=== PATIENT | female | born 1985 | race Caucasian/White ===

== ENCOUNTER 2017-02-06 18:15 | Emergency (ER) | payer BC ==
--- NOTE | 2017-02-06 18:59 | EDM.PDOC ---
ED HPI GENERAL MEDICAL PROBLEM - General Chief Complaint: General Stated Complaint: ALLERGIC REACTION?? Time Seen by Provider: 02/06/17 18:35 Source of Information: Reports: Patient History Limitations: Reports: No Limitations - History of Present Illness INITIAL COMMENTS - FREE TEXT/NARRATIVE: PT STATES SHE WAS SEEN IN CLINIC TODAY BU DR GARCIA AND GIVEN 2 NEW PRESCRIPTIONS, BUSPIRONE AND DULOXETINE FOR ANXIETY SYMPTOMS. PT TOOK BOTH MEDICATIONS AT SAME TIME AND SHORTLY AFTER DEVELOPED DIZZINESS AND WEAKNESS WHILE AT WORK. DECIDED TO PRESENT TO ER. DENIES CP, SOB, FEVER, LEROY, OR N/V. Quality: Reports: Other (DIZZY) Improves with: Reports: None Worsens with: Reports: None Associated Symptoms: Reports: Weakness - Related Data Allergies Allergy/AdvReac Type Severity Reaction Status Date / Time ciprofloxacin [From Cipro] Allergy Rash Verified 02/06/17 18:31 ciprofloxacin HCl Allergy Rash Verified 02/06/17 18:31 [From Cipro] hydromorphone HCl Allergy Hives Verified 02/06/17 18:31 [From Dilaudid] morphine Allergy Hives Verified 02/06/17 18:31 sulfamethoxazole Allergy Hives Verified 02/06/17 18:31 [From Bactrim] terbutaline sulfate Allergy Hives Verified 02/06/17 18:31 [From Brethine] trimethoprim [From Bactrim] Allergy Hives Verified 02/06/17 18:31 Home Meds: Home Meds Hydrocodone/Acetaminophen [Hydrocodon-Acetaminophen 5-325] 1 tab PO Q4HR PRN [History] Past Medical History Other Endocrine/Metabolic History: nodules on thyroid Social & Family History - Tobacco Use Smoking Status *Q: Current Every Day Smoker Years of Tobacco use: 15 Used Tobacco, but Quit: No Second Hand Smoke Exposure: No - Alcohol Use Days Per Week of Alcohol Use: 0 - Recreational Drug Use Recreational Drug Use: No - Living Situation & Occupation Living situation: Reports: , with Family Occupation: Employed ED ROS GENERAL - Review of Systems Review Of Systems: ROS reveals no pertinent complaints other than HPI. Constitutional: Reports: Weakness HEENT: Reports: No Symptoms Respiratory: Reports: No Symptoms Cardiovascular: Reports: No Symptoms Endocrine: Reports: No Symptoms GI/Abdominal: Reports: No Symptoms : Reports: No Symptoms Musculoskeletal: Reports: No Symptoms Skin: Reports: No Symptoms Neurological: Reports: Dizziness. Denies: Headache Psychiatric: Reports: No Symptoms Hematologic/Lymphatic: Reports: No Symptoms Immunologic: Reports: No Symptoms ED EXAM, GENERAL - Physical Exam Exam: See Below Exam Limited By: No Limitations General Appearance: Alert, WD/WN, No Apparent Distress Eye Exam: Bilateral Eye: Normal Inspection Ears: Normal External Exam, Normal Canal, Hearing Grossly Normal, Normal TMs Nose: Normal Inspection, Normal Mucosa, No Blood Throat/Mouth: Normal Inspection, Normal Oropharynx, No Airway Compromise Head: Atraumatic, Normocephalic Neck: Normal Inspection, Supple, Non-Tender Respiratory/Chest: No Respiratory Distress, Lungs Clear, Normal Breath Sounds, No Accessory Muscle Use, Chest Non-Tender Cardiovascular: Regular Rate, Rhythm, No Murmur, No Rub GI/Abdominal: Normal Bowel Sounds, Soft, Non-Tender Back Exam: Normal Inspection. No: CVA Tenderness (L), CVA Tenderness (R) Extremities: Normal Inspection, No Pedal Edema Neurological: Alert, Oriented, CN II-XII Intact, Normal Cognition, No Motor/ Sensory Deficits Psychiatric: Normal Affect, Normal Mood Skin Exam: Warm, Dry, Intact, Normal Color, No Rash Lymphatic: No Adenopathy Course - Re-Assessments/Exams Free Text/Narrative Re-Assessment/Exam: 02/06/17 18:58 PT GIVEN ONE LITER OF IV NS FLUID. CURRENTLY AFEBRILE, NONTOXIC APPEARING, VSS, FEELS BETTER Departure - Departure Time of Disposition: 19:04 Disposition: Home, Self-Care 01 Condition: good Clinical Impression: Medication reaction Qualifiers: Encounter type: initial encounter Qualified Code(s): T88.7XXA - Unspecified adverse effect of drug or medicament, initial encounter - Discharge Information Instructions: Panic Attacks, [id number] Additional Instructions: FOLLOW UP WITH DR GARCIA - Assessment/Plan Assessment:: MEDICATION REACTION Plan: TAKE MEDS DIRECTED AND F/U WITH DR GARCIA
[2017-02-06 19:04] VITALS: BP 137/104
[2017-02-06] MEDS ORDERED: Sodium Chloride 0.9% 1,000 ML IV ONE (19:05)
== END 2017-02-06 19:40 | disposition home or self-care (01) ==
LOC: KA.ED 18:15
DX: R42 Dizziness and giddiness (principal); T43.595A Adverse effect of other antipsychotics and neuroleptics, initial encounter; F17.210 Nicotine dependence, cigarettes, uncomplicated; Z88.1 Allergy status to other antibiotic agents; Z88.5 Allergy status to narcotic agent; Z88.2 Allergy status to sulfonamides
CPT/HCPCS: 96360; 99283; J7030

== ENCOUNTER 2017-03-16 17:41 | Emergency (ER) | payer BC ==
[2017-03-16 17:55] VITALS: BP 145/108
[2017-03-16] MEDS ORDERED: Sodium Chloride 0.9% 5 ML Syringe FLUSH PRN (18:00)
[2017-03-16] MEDS ORDERED: Meperidine PF 25 MG/ML Syringe IVPUSH ONE (18:40)
[2017-03-16] MEDS ORDERED: hydrOXYzine HCl 50 MG/ML SDV IM ONE (18:41)
[2017-03-16 19:02] LABS: CHLORIDE,CL 99 mmol/L (98-115); SODIUM,NA 138 mmol/L (136-145)
[2017-03-16] MEDS ORDERED: Iopamidol 612 MG/ML 75 ML Bottle IVPUSH ONE (20:07)
[2017-03-16] MEDS ORDERED: Sodium Chloride 0.9% 50 ML SDV FLUSH ONE (20:09)
[2017-03-16] MEDS ORDERED: Ketorolac 30 MG/ML SDV IVPUSH ONE (20:10)
[2017-03-16] MEDS ORDERED: Ketorolac 30 MG/ML SDV ONE (20:11)
[2017-03-16] MEDS ORDERED: Ketorolac 10 MG Tab PO ONE (20:55)
[2017-03-16] MEDS ORDERED: Acetaminophen/HYDROcodone 325-5 MG Tab PO ONE (20:55)
[2017-03-16] MEDS ORDERED: Ketorolac 10 MG Tab ONE (20:55)
[2017-03-16] MEDS ORDERED: Acetaminophen/HYDROcodone 325-5 MG Tab ONE (20:55)
--- NOTE | 2017-03-16 21:11 | EDM.PDOC ---
ED HPI GENERAL MEDICAL PROBLEM - General Chief Complaint: Genitourinary Problem Stated Complaint: TROUBLE/PAIN URINATING Time Seen by Provider: 03/16/17 17:50 Source of Information: Reports: Patient History Limitations: Reports: No Limitations - History of Present Illness INITIAL COMMENTS - FREE TEXT/NARRATIVE: 31-year-old female presents with complaints of abdominal pain, cramping, pain with urinating. Patient reports his symptoms have been going on now for several days. They seem to be continuous. She had had a laparotomy for removal of the enlarged left ovary which she reports was adhesive to her large intestine. This was removed on 03/09/17 at [facility] by Dr. Stanley Hill. She's been taking ibuprofen 800 mg and hydrocodone that was provided by her primary care. She was seen in clinic on Sunday by Dr. Mary Lang and had a urinary analysis drawn and was started on Macrobid. She's had little improvement with her pain and symptoms. Maury 1-2 hydrocodone about every 4-6 hours. She's also tried a heating pad without relief. She denies any fever or chills. She has felt nauseous since Sunday. She has had a bowel movement every day. She has had a prior hysterectomy 6 years ago. She rates her pain a 7 or 8 out of possible 10 in severity. Onset: Gradual Onset Date: 03/13/17 Duration: Constant Location: Reports: Pelvis Quality: Reports: Burning, Sharp, Other (cramping) Severity: Moderate Improves with: Reports: None Worsens with: Reports: None Context: Reports: Other (surgery, pelvic laparotomy) Associated Symptoms: Reports: Nausea/Vomiting (denies vomiting). 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, Other (see below) (hydrocodone, Macrobid) Lower Abdominal Pain Score (Numeric/FACES): 8 - Related Data Allergies Allergy/AdvReac Type Severity Reaction Status Date / Time ciprofloxacin [From Cipro] Allergy Rash Verified 03/16/17 17:50 ciprofloxacin HCl Allergy Rash Verified 03/16/17 17:50 [From Cipro] hydromorphone HCl Allergy Hives Verified 03/16/17 17:50 [From Dilaudid] morphine Allergy Hives Verified 03/16/17 17:50 sulfamethoxazole Allergy Hives Verified 03/16/17 17:50 [From Bactrim] terbutaline sulfate Allergy Hives Verified 03/16/17 17:50 [From Brethine] trimethoprim [From Bactrim] Allergy Hives Verified 03/16/17 17:50 Home Meds: Home Meds Hydrocodone/Acetaminophen [Hydrocodon-Acetaminophen 5-325] 1 tab PO Q4HR PRN [History] busPIRone [Buspar] 10 mg PO Q8H PRN 02/06/17 [History] traMADol [Ultram] 50 mg PO Q8H PRN 02/06/17 [History] Escitalopram [Lexapro] 1 tab PO DAILY 03/16/17 [History] Nitrofurantoin Millard/Macrocryst [Macrobid] 1 tab PO BID 03/16/17 [History] Past Medical History Genitourinary History: Reports: None 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: Reports: Fibroids, Psychiatric History: Reports: Depression Endocrine/Metabolic History: Reports: Other (See Below) Other Endocrine/Metabolic History: nodules on thyroid Hematologic History: Reports: Blood Transfusion(s) - Infectious Disease History Infectious Disease History: Reports: Chicken Pox - Past Surgical History Head Surgeries/Procedures: Reports: None Female Surgical History: Reports: Cystoscopy, Hysterectomy, Salpingo- Oophorectomy Endocrine Surgical History: Reports: None Social & Family History - Family History Family Medical History: Noncontributory - Tobacco Use Smoking Status *Q: Current Every Day Smoker Years of Tobacco use: 15 Packs/Tins Daily: 0.5 Used Tobacco, but Quit: No Second Hand Smoke Exposure: No - Caffeine Use Caffeine Use: Reports: None - Alcohol Use Days Per Week of Alcohol Use: 0 - Recreational Drug Use Recreational Drug Use: No - Living Situation & Occupation Living situation: Reports: , with Family Occupation: Employed ED ROS GENERAL - Review of Systems Review Of Systems: Unable To Obtain Constitutional: Denies: Fever, Chills, Diaphoresis HEENT: Reports: No Symptoms Respiratory: Reports: No Symptoms Cardiovascular: Reports: No Symptoms Endocrine: Reports: No Symptoms GI/Abdominal: Reports: Abdominal Pain, Nausea. Denies: Vomiting : Reports: Dysuria, Hematuria, Pain. Denies: Flank Pain, Incontinence Musculoskeletal: Reports: No Symptoms Skin: Reports: Bruising (abdomen near her portal incision sites) Neurological: Reports: No Symptoms Psychiatric: Reports: No Symptoms Hematologic/Lymphatic: Reports: No Symptoms Immunologic: Reports: No Symptoms ED EXAM, RENAL/ - Physical Exam Exam: See Below Exam Limited By: No Limitations General Appearance: Alert, Mild Distress, Thin Throat/Mouth: Normal Voice, No Airway Compromise Head: Atraumatic Neck: Normal Inspection Respiratory/Chest: No Respiratory Distress, Lungs Clear Cardiovascular: Normal Peripheral Pulses, Regular Rate, Rhythm, No Murmur GI/Abdominal: Normal Bowel Sounds, Tender, Other (incisional portal sites are benign appearing there is mild ecchymosis in the lower abdomen.). No: Guarding , Rigid, Rebound Back Exam: Normal Inspection Extremities: Normal Inspection, No Pedal Edema Neurological: Alert, Oriented, Normal Cognition, Normal Gait, No Motor/Sensory Deficits Psychiatric: Normal Affect, Normal Mood Skin Exam: Warm, Dry, Intact, Normal Color, No Rash, Ecchymosis, Wound/Incision (benign) Lymphatic: No Adenopathy Course - Vital Signs Last Recorded V/S: Last Vital Signs Temp 98.1 F 03/16/17 17:52 Pulse 108 H 03/16/17 17:52 Resp 16 03/16/17 17:52 BP 145/108 H 03/16/17 17:52 Pulse Ox 100 03/16/17 17:52 - Orders/Labs/Meds Orders: Active Orders 24 hr Category Date Time Status Abdomen Pelvis w Cont [CT] Stat Exams 03/16/17 18:37 Ordered Sodium Chloride 0.9% [Syrex Flush] Med 03/16/17 18:00 Active 5 ml FLUSH Q8HR PRN Saline Lock Insert [OM.PC] Routine Oth 03/16/17 18:00 Ordered Medication Orders Sodium Chloride (Syrex Flush) 5 ml FLUSH Q8HR PRN PRN Reason: Keep Vein Open Last Admin: 03/16/17 20:17 Dose: 5 ml Labs: Laboratory Tests 03/16/17 03/16/17 03/16/17 Range/Units 18:30 18:30 18:30 WBC 13.5 H (5.0-10.0) 10^3/uL RBC 4.60 (3.80-5.50) 10^6/uL Hgb 14.7 (12.0-16.0) g/dL Hct 41.9 (37.0-47.0) % MCV 91.2 (82.0-92.0) fL MCH 31.9 H (27.0-31.0) pg MCHC 35.0 (32.0-36.0) g/dL RDW 12.3 (11.5-14.5) % Plt Count 364 H (150-300) 10^3/uL MPV 7.2 L (7.4-10.4) fL Neut % (Auto) 74.4 H (50.0-70.0) % Lymph % (Auto) 17.9 L (20.0-40.0) % Millard % (Auto) 5.5 (2.0-8.0) % Eos % (Auto) 1.3 (1.0-3.0) % Baso % (Auto) 0.9 (0.0-1.0) % Neut # (Auto) 10.1 H (2.5-7.0) 10^3/uL Lymph # (Auto) 2.4 (1.0-4.0) 10^3/uL Millard # (Auto) 0.7 (0.1-0.8) 10^3/uL Eos # (Auto) 0.2 (0.1-0.3) 10^3/uL Baso # (Auto) 0.1 (0.0-0.1) 10^3/uL Sodium 138 (136-145) mmol/L Potassium 4.0 (3.3-5.3) mmol/L Chloride 99 (98-115) mmol/L Carbon Dioxide 28.8 (21.0-32.0) mmol/L BUN 10 (6-25) mg/dL Creatinine 0.74 (0.51-1.17) mg/dL Est Cr Clr Drug Dosing 102.01 mL/min Estimated GFR (MDRD) > 60 mL/min Glucose 115 H (70-110) mg/dL Calcium 9.3 (8.7-10.3) mg/dL Specimen Type Urincc Urine Color Yellow (YELLOW) Urine Appearance Clear (CLEAR) Urine pH 6.0 (5.0-9.0) Ur Specific Falcon <= 1.005 (1.005-1.030) Urine Protein Negative (NEGATIVE) mg/dL Urine Glucose (UA) Negative (NEGATIVE) mg/dL Urine Ketones Negative (NEGATIVE) mg/dL Urine Occult Blood Moderate H (NEGATIVE) Urine Nitrite Negative (NEGATIVE) Urine Bilirubin Negative (NEGATIVE) Urine Urobilinogen 0.2 (0.2-1.0) E.U./dL Ur Leukocyte Esterase Negative (NEGATIVE) Urine RBC 20-30 H /HPF Urine WBC 0-5 /HPF Ur Epithelial Cells Moderate H /LPF Urine Bacteria Few (NONE TO FEW) /HPF Meds: Medications Generic Name Dose Route Start Last Admin Trade Name Kisha PRN Reason Stop Dose Admin Sodium Chloride 5 ml 03/16/17 18:00 03/16/17 20:17 Syrex Flush FLUSH 5 ml Q8HR PRN Administration Keep Vein Open Discontinued Medications Generic Name Dose Route Start Last Admin Trade Name Kisha PRN Reason Stop Dose Admin Hydrocodone Bitart/Acetaminophen 2 tab 03/16/17 20:55 03/16/17 21:14 Benld 325-5 Mg PO 03/16/17 20:56 Not Given ONETIME ONE Hydrocodone Bitart/Acetaminophen Confirm 03/16/17 20:55 03/16/17 21:15 Benld 325-5 Mg Administered 03/16/17 20:56 Not Given Dose 2 tab .ROUTE .STK-MED ONE Hydroxyzine HCl 50 mg 03/16/17 18:41 03/16/17 19:03 Vistaril IM 03/16/17 18:42 50 mg ONETIME ONE Administration Iopamidol 75 ml 03/16/17 20:07 03/16/17 20:08 Isovue-300 (61%) IVPUSH 03/16/17 20:08 75 ml ONETIME ONE Administration Ketorolac Tromethamine 30 mg 03/16/17 20:10 03/16/17 20:13 Toradol IVPUSH 03/16/17 20:11 30 mg ONETIME ONE Administration Ketorolac Tromethamine Confirm 03/16/17 20:11 03/16/17 21:15 Toradol Administered 03/16/17 20:12 Not Given Dose 30 mg .ROUTE .STK-MED ONE Ketorolac Tromethamine 10 mg 03/16/17 20:55 03/16/17 21:15 Toradol PO 03/16/17 20:56 Not Given ONETIME ONE Ketorolac Tromethamine Confirm 03/16/17 20:55 03/16/17 21:17 Toradol Administered 03/16/17 20:56 Not Given Dose 10 mg .ROUTE .STK-MED ONE Meperidine HCl 25 mg 03/16/17 18:40 03/16/17 19:05 Demerol IVPUSH 03/16/17 18:41 25 mg ONETIME ONE Administration Sodium Chloride 50 ml 03/16/17 20:09 03/16/17 20:10 Normal Saline FLUSH 03/16/17 20:10 50 ml ONETIME ONE Administration - Radiology Interpretation Free Text/Narrative:: CT abdomen pelvis with IV contrast Findings; postsurgical changes in the abdomen and pelvis from recent left nephrectomy. Some of the fluid pelvis is likely postsurgical. There is slightly more than expected and there is an adjacent portion of sigmoid colon demonstrates wall thickening. This could be secondary to recent surgery, or small amount of inflammation. There is no pneumoperitoneum to suggest perforation Recent surgery explains the air in the anterior abdominal wall. Uterus is also been resected still has the appendix. Solid abdominal viscera is unremarkable. Right ovary remains, demonstrating slight enlargement and numerous small peripherally located follicles. Scattered changes of spondylolysis of the spine no fracture or obvious lesion. Impression Fluid in the abdomen is likely due in part to recent left nephrectomy. Small amount of sigmoid bowel inflammation is also possible as described above. However no evidence of perforation at this time. Otherwise no significant abnormality in the abdomen or pelvis. CT Results Date: 03/16/17 CT Results Time: 20:55 - Re-Assessments/Exams Free Text/Narrative Re-Assessment/Exam: 03/16/17 23:46 Patient was given IV Demerol, IM Vistaril, IV Toradol. She had improvement of her pain and symptoms with the Demerol and Vistaril bringing her pain down to a 6 out of 10. She was given IV Toradol after her CT scan and this dropped her pain down to a 5 out of 10 and she felt that this was manageable Departure - Departure Time of Disposition: 21:15 Disposition: Home, Self-Care 01 Condition: Good Clinical Impression: Postoperative lower abdominal pain - Discharge Information Instructions: Hysterectomy Information, Pujo-[id number], Abdominal Pain, Adult, [id number] Referrals: Mary Huerta MD [Primary Care Provider] - Forms: ED Department Discharge Additional Instructions: 1. Rest 2. Benld 5/325 one to 2 every 6 hours when necessary for pain. 3. Toradol 10 mg 1 every 8 hours when necessary for pain 4. If abdominal pain continues to be not relieved with pain medication and rest encourage follow-up in the emergency room for reevaluation and further studies. 5. 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 6. Continue with oral hydration and bland diet at this time. - My Orders Last 24 Hours: My Active Orders 03/16/17 18:00 Sodium Chloride 0.9% [Syrex Flush] 5 ml FLUSH Q8HR PRN Saline Lock Insert [OM.PC] Routine 03/16/17 18:37 Abdomen Pelvis w Cont [CT] Stat - Assessment/Plan Last 24 Hours: My Active Orders 03/16/17 18:00 Sodium Chloride 0.9% [Syrex Flush] 5 ml FLUSH Q8HR PRN Saline Lock Insert [OM.PC] Routine 03/16/17 18:37 Abdomen Pelvis w Cont [CT] Stat Assessment:: 1. Lower abdominal pelvic pain following laparotomy for removal of the left ovary and adhesions. Plan: 1. Rest 2. Benld 5/325 one to 2 every 6 hours when necessary for pain. 3. Toradol 10 mg 1 every 8 hours when necessary for pain 4. If abdominal pain continues to be not relieved with pain medication and rest encourage follow-up in the emergency room for reevaluation and further studies. 5. 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 6. Continue with oral hydration and bland diet at this time.
== END 2017-03-16 21:15 | disposition home or self-care (01) ==
LOC: KA.ED 17:41
DX: R10.30 Lower abdominal pain, unspecified (principal); G89.18 Other acute postprocedural pain; Z98.890 Other specified postprocedural states; Z79.899 Other long term (current) drug therapy; Z88.1 Allergy status to other antibiotic agents; Z88.6 Allergy status to analgesic agent; Z88.2 Allergy status to sulfonamides; F17.210 Nicotine dependence, cigarettes, uncomplicated
CPT/HCPCS: 74177; 80048; 81001; 85025; 96372; 96374; 96375; 99284; A9270; J1885; J2175; J3410; Q9967

== ENCOUNTER 2020-04-14 20:59 | Emergency (ER) | payer BC, OTHER ==
[2020-04-14 21:15] VITALS: BP 132/92; PULSE 100
--- NOTE | 2020-04-14 22:02 | EDM.PDOC ---
ED HPI GENERAL MEDICAL PROBLEM - General Chief Complaint: General Stated Complaint: headache, dizziness Time Seen by Provider: 04/14/20 21:30 Source of Information: Reports: Patient, Significant Other History Limitations: Reports: No Limitations - History of Present Illness INITIAL COMMENTS - FREE TEXT/NARRATIVE: Patient presents with headache (6/10), slight vision "delay", nausea and pain in the right scientology. 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 She says she didn't have LOC or fall but did have visual "blackout" for 3-4 seconds. She finished the last 7 hours of her 10-hour shift then went home and slept. She slept Sunday 0800 to 1800 and awoke with a bad headache and a delay in her vision, when she moved her eyes, that made things blurry briefly only with eye movement. Today she has also had pain in the right scientology where the wrench hit her. No vomiting or balance problems. Headache Pain Score (Numeric/FACES): 7 Neck Pain Score (Numeric/FACES): 4 - Related Data Allergies Allergy/AdvReac Type Severity Reaction Status Date / Time ciprofloxacin [From Cipro] Allergy Rash Verified 04/14/20 21:01 ciprofloxacin HCl Allergy Rash Verified 04/14/20 21:01 [From Cipro] hydromorphone HCl Allergy Hives Verified 04/14/20 21:01 [From Dilaudid] morphine Allergy Hives Verified 04/14/20 21:01 sulfamethoxazole Allergy Hives Verified 04/14/20 21:01 [From Bactrim] terbutaline sulfate Allergy Hives Verified 04/14/20 21:01 [From Brethine] trimethoprim [From Bactrim] Allergy Hives Verified 04/14/20 21:01 Home Meds: Home Meds Hydrocodone/Acetaminophen [Hydrocodon-Acetaminophen 5-325] 1 tab PO Q4HR PRN 02/06/17 [History] traMADol [Ultram] 50 mg PO Q8H PRN 02/06/17 [History] Prazosin HCl [Prazosin] 2 mg PO BEDTIME 07/09/18 [History] Past Medical History Genitourinary History: Reports: None 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, Musculoskeletal History: Reports: Back Pain, Chronic Psychiatric History: Reports: Depression Endocrine/Metabolic History: Reports: Other (See Below) Other Endocrine/Metabolic History: nodules on thyroid Hematologic History: Reports: Blood Transfusion(s) - Infectious Disease History Infectious Disease History: Reports: Chicken Pox - Past Surgical History Head Surgeries/Procedures: Reports: None Female Surgical History: Reports: Section, Cystoscopy, Hysterectomy, Salpingo-Oophorectomy Endocrine Surgical History: Reports: None Social & Family History - Family History Family Medical History: Noncontributory - Tobacco Use Smoking Status *Q: Current Every Day Smoker Years of Tobacco use: 20 Packs/Tins Daily: 0.5 - Caffeine Use Caffeine Use: Reports: Energy Drinks - Recreational Drug Use Recreational Drug Use: No - Living Situation & Occupation Living situation: Reports: , with Family Occupation: Employed ED ROS GENERAL - Review of Systems Review Of Systems: See Below Constitutional: Denies: Fever, Chills, Malaise, Weakness HEENT: Denies: Ear Pain, Throat Pain Respiratory: Denies: Shortness of Breath, Cough Cardiovascular: Denies: Chest Pain, Syncope GI/Abdominal: Reports: Nausea. Denies: Abdominal Pain, Diarrhea, Vomiting : Denies: Dysuria, Flank Pain Musculoskeletal: Reports: Neck Pain (right posterior muscle). Denies: Shoulder Pain, Arm Pain, Back Pain, Hand Pain Skin: Denies: Cyanosis, Jaundice, Mottled, Pallor, Diaphoresis Neurological: Reports: Headache. Denies: Confusion, Dizziness, Seizure, Syncope, Trouble Speaking, Difficulty Walking Psychiatric: Denies: Agitation, Anxiety, Confusion ED EXAM, GENERAL - Physical Exam Exam: See Below Exam Limited By: No Limitations General Appearance: Alert, WD/WN, No Apparent Distress Eye Exam: Bilateral Eye: EOMI, Normal Inspection (full visual parrish bilat), PERRL Ears: Normal External Exam, Normal Canal, Hearing Grossly Normal, Normal TMs Nose: Normal Inspection, No Blood Throat/Mouth: Normal Inspection, Normal Lips, Normal Teeth, Normal Gums, Normal Oropharynx, Normal Voice, No Airway Compromise Head: Other (Right scientology is quite tender to touch with slight palpable swelling/induration about 5 x 5 cm in size. Skin intact without ecchymosis. No raccoon eyes or maciel sign.). No: Facial Swelling, Facial Tenderness Neck: Normal Inspection, Supple, Full Range of Motion, Tender Lateral (right paraspinal muscle). No: Tender Midline Respiratory/Chest: No Respiratory Distress, Lungs Clear, Normal Breath Sounds, No Accessory Muscle Use Cardiovascular: Regular Rate, Rhythm, No Murmur Peripheral Pulses: 2+: Carotid (L), Carotid (R) GI/Abdominal: Normal Bowel Sounds, Soft, Non-Tender, No Organomegaly, No Distention, No Abnormal Bruit Back Exam: Normal Inspection, Full Range of Motion. No: CVA Tenderness (L), CVA Tenderness (R), Paraspinal Tenderness, Vertebral Tenderness Extremities: Normal Inspection, Normal Range of Motion Neurological: Alert, Oriented, CN II-XII Intact, Normal Cognition, Normal Gait, No Motor/Sensory Deficits Psychiatric: Normal Affect, Normal Mood Skin Exam: Warm, Dry, Intact, Normal Color, No Rash Course - Vital Signs Last Recorded V/S: Last Vital Signs Temp 96.5 F L 04/14/20 21:11 Pulse 100 04/14/20 21:11 Resp 20 04/14/20 21:11 BP 132/92 H 04/14/20 21:11 Pulse Ox 98 04/14/20 21:11 - Orders/Labs/Meds Orders: Active Orders 24 hr Category Date Time Status Head wo Cont [CT] Stat Exams 04/14/20 21:09 Ordered - Re-Assessments/Exams Free Text/Narrative Re-Assessment/Exam: 04/14/20 22:[address] shows no acute pathology. I discussed findings and treatment plan with patient and her . We discussed concussion precautions and recommendations. She talked with Dr. Newman, her PCP, earlier today and was given work excuse for last night and tonight. We discussed that a few more nights off would be helpful, especially with her ongoing headache and other symptoms. She will talk to Dr. Newman about extending the work release and find out if she wants to see her before she goes back to work or not. Patient doesn't want anything for her headache now. She just wanted to make sure nothing serious was going on and now can go home and sleep. Patient discharged to home in stable condition. Departure - Departure Time of Disposition: 22:27 Disposition: Home, Self-Care 01 Condition: Good Clinical Impression: Concussion Qualifiers: Encounter type: initial encounter Loss of consciousness presence/duration: without LOC Qualified Code(s): S06.0X0A - Concussion without loss of consciousness, initial encounter - Discharge Information Instructions: Concussion, Adult, [id number], Head Injury, Adult, [id number] Referrals: Mary Huerta MD [Primary Care Provider] - Additional Instructions: Avoid activities that would be higher risk for re-injury of your head. Avoid stress on the brain from prolonged reading, screen time, studying, etc. Get extra sleep. Follow up with your PCP if headache and eye symptoms persist more than a couple days. Recheck sooner with PCP or ER if worsening. Sepsis Event Note (ED) - Evaluation Sepsis Screening Result: No Definite Risk - Focused Exam Vital Signs: Vital Signs Temp Pulse Resp BP Pulse Ox 04/14/20 21:11 96.5 F L 100 20 132/92 H 98 - My Orders Last 24 Hours: My Active Orders 04/14/20 21:09 Head wo Cont [CT] Stat - Assessment/Plan Last 24 Hours: My Active Orders 04/14/20 21:09 Head wo Cont [CT] Stat
--- NOTE | 2020-04-15 08:10 | CT ---
[id number] CT/CT Head WO IV EXAM: NONCONTRAST HEAD CT INDICATION: HEADACHE/DIZZY/HIT HEAD AT WORK COMPARISON: None. DISCUSSION: The ventricles and sulci are normal in size and configuration. The bustamante and white matter are normal in attenuation. No mass effect or midline shift. No acute hemorrhage or extra-axial fluid collection. No acute territorial infarct is identified. A limited look at the orbits and paranasal sinuses is unremarkable. IMPRESSION: 1. Negative exam. Bright Lacy MD 04/15/20 0808 Thank you for allowing us to participate in the care of your patient.
== END 2020-04-14 22:34 | disposition home or self-care (01) ==
LOC: KA.ED 20:59
DX: S06.0X0A Concussion without loss of consciousness, initial encounter (principal); F17.210 Nicotine dependence, cigarettes, uncomplicated; Z88.1 Allergy status to other antibiotic agents; Z88.5 Allergy status to narcotic agent; Z88.2 Allergy status to sulfonamides; W22.8XXA Striking against or struck by other objects, initial encounter
CPT/HCPCS: 70450; 99284; 99284-25

== ENCOUNTER 2021-05-14 03:35 | Emergency (ER) | payer SELFPAY ==
--- NOTE | 2021-05-14 03:54 | EDM.PDOC ---
ED HPI GENERAL MEDICAL PROBLEM - General Chief Complaint: Behavioral/Psych Stated Complaint: suicide attempt Time Seen by Provider: 05/14/21 03:36 Source of Information: Reports: Patient, EMS History Limitations: Reports: No Limitations - History of Present Illness INITIAL COMMENTS - FREE TEXT/NARRATIVE: Sherly, 35-year-old female, presents by [facility] after suicidal ideation and attempt. At roughly 0115 hrs. today took 10 metaxalone tablets that she found at the residence. She states that she felt everyone would be better off if she was not here. She also made a gesture with superficial lacerations of the left wrist with a safety razor. States she is got quite a lot going on in her life, with a history of anxiety depression and PTSD. Denies other intake, denies alcohol. States there was a gesture roughly 12 years ago with no intervention. When asked the source of medication stating that it was her father's and that she dug around and found what she could that "was not Tylenol". Onset: Today Duration: Hour(s): Location: Reports: Head - Related Data Allergies Allergy/AdvReac Type Severity Reaction Status Date / Time ciprofloxacin [From Cipro] Allergy Rash Verified 05/14/21 03:41 ciprofloxacin HCl Allergy Rash Verified 05/14/21 03:41 [From Cipro] hydromorphone HCl Allergy Hives Verified 05/14/21 03:41 [From Dilaudid] morphine Allergy Hives Verified 05/14/21 03:41 sulfamethoxazole Allergy Hives Verified 05/14/21 03:41 [From Bactrim] terbutaline sulfate Allergy Hives Verified 05/14/21 03:41 [From Brethine] trimethoprim [From Bactrim] Allergy Hives Verified 05/14/21 03:41 Home Meds: Home Meds Hydrocodone/Acetaminophen [Hydrocodon-Acetaminophen 5-325] 1 tab PO Q4HR PRN 02/06/17 [History] traMADol [Ultram] 50 mg PO Q8H PRN 02/06/17 [History] nitrofurantoin macrocrystaL [Nitrofurantoin] 100 mg PO BID 7 Days #13 capsule 05/14/21 [Rx] Past Medical History Cardiovascular History: Reports: None Respiratory History: Reports: None Genitourinary History: Reports: None 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: Reports: Fibroids, Musculoskeletal History: Reports: Back Pain, Chronic Psychiatric History: Reports: Anxiety, Depression, Suicide Attempt Endocrine/Metabolic History: Reports: Other (See Below) Other Endocrine/Metabolic History: nodules on thyroid Hematologic History: Reports: Blood Transfusion(s) - Infectious Disease History Infectious Disease History: Reports: Chicken Pox - Past Surgical History Head Surgeries/Procedures: Reports: None Female Surgical History: Reports: Section, Cystoscopy, Hysterectomy, Salpingo-Oophorectomy Endocrine Surgical History: Reports: None Social & Family History - Family History Family Medical History: No Pertinent Family History - Tobacco Use Tobacco Use Status *Q: Current Every Day Tobacco User - Caffeine Use Caffeine Use: Reports: Energy Drinks - Living Situation & Occupation Living situation: Reports: , with Family Occupation: Employed ED ROS GENERAL - Review of Systems Review Of Systems: Comprehensive ROS is negative, except as noted in HPI. ED EXAM, GENERAL - Physical Exam Exam: See Below Free Text/Narrative:: Alert, oriented, conversing freely in no acute distress. HEENT is negative discharge or deformity with pink moist mucous membranes. PERRLA no icterus no injection. Neck soft supple no rigidity or lymphadenopathy noted. Cardiac regular with no murmur. Thorax is clear with no wheezes or crackles. Abdomen soft bowel sounds present no tenderness no flank tenderness. Superficial scratch type laceration to the left wrist with no active bleeding or evidence of infection. No other injuries are noted. She has full function of her extremities. Due to time of incident to arrival, 2 1/2 hours no treatment actions of charcoal nor lavage are considered. #1 Interpretation EKG Date: 05/14/21 Time: 03:57 Rhythm: NSR Rate (Beats/Min): 105 [place]: Normal P-Wave: Present QRS: Normal ST-T: Normal QT: Normal Comparison: Change From Previous EKG (rate changes.) Course - Vital Signs Last Recorded V/S: Last Vital Signs Temp 98.9 F 05/14/21 04:53 Pulse 95 05/14/21 04:53 Resp 14 05/14/21 04:53 BP 128/79 05/14/21 04:53 Pulse Ox 99 05/14/21 04:53 - Orders/Labs/Meds Orders: Active Orders 24 hr Category Date Time Status Suicide Precautions [RC] .Per Facility Policy Care 05/14/21 04:20 Active CULTURE URINE [RM] Stat Lab 05/14/21 04:00 Received EKG 12 Lead [EK] Stat Ther 05/14/21 03:47 Ordered Labs: Laboratory Tests 05/14/21 05/14/21 05/14/21 Range/Units 04:00 04:00 04:03 WBC 11.53 H (5.00-10.00) 10^3/uL RBC 4.43 (3.80-5.50) 10^6/uL Hgb 13.7 (12.0-16.0) g/dL Hct 40.5 (37.0-47.0) % MCV 91.4 (82.0-92.0) fL MCH 30.9 (27.0-31.0) pg MCHC 33.8 (32.0-36.0) g/dL RDW 12.5 (11.5-14.5) % Plt Count 314 (150-400) 10^3/uL MPV 8.9 (7.4-10.4) fL Immature Gran % (Auto) 0.2 (0.0-5.0) % Neut % (Auto) 60.1 (50.0-70.0) % Lymph % (Auto) 29.7 (20.0-40.0) % [place] % (Auto) 8.3 H (2.0-8.0) % Eos % (Auto) 1.2 (1.0-3.0) % Baso % (Auto) 0.5 (0.0-1.0) % Neut # (Auto) 6.93 (2.50-7.00) 10^3/uL Lymph # (Auto) 3.42 (1.00-4.00) 10^3/uL [place] # (Auto) 0.96 H (0.10-0.80) 10^3/uL Eos # (Auto) 0.14 (0.10-0.30) 10^3/uL Baso # (Auto) 0.06 (0.00-0.10) 10^3/uL Immature Gran # (Auto) 0.02 (0.00-0.50) 10^3/uL Sodium (136-145) mmol/L Potassium (3.5-5.1) mmol/L Chloride (98-107) mmol/L Carbon Dioxide (21.0-32.0) mmol/L Anion Gap (5-15) mmol/L BUN (7-18) mg/dL Creatinine (0.51-1.17) mg/dL Est Cr Clr Drug Dosing mL/min Estimated GFR (MDRD) mL/min Glucose (70-140) mg/dL Calcium (8.7-10.3) mg/dL Total Bilirubin (0.2-1.0) mg/dL AST (15-37) U/L ALT (14-63) U/L Alkaline Phosphatase (46-116) U/L Total Protein (6.4-8.2) g/dL Albumin (3.40-5.00) g/dL Specimen Type Urincc Urine Color Dark yellow H (YELLOW) Urine Appearance Slightly cloudy H (CLEAR) Urine pH 5.5 (5.0-9.0) Ur Specific [place] 1.025 (1.005-1.030) Urine Protein 30 H (NEGATIVE) mg/dL Urine Glucose (UA) Negative (NEGATIVE) mg/dL Urine Ketones >=160 H (NEGATIVE) mg/dL Urine Occult Blood Large H (NEGATIVE) Urine Nitrite Positive H (NEGATIVE) Urine Bilirubin Negative (NEGATIVE) Urine Urobilinogen 0.2 (0.2-1.0) E.U./dL Ur Leukocyte Esterase Negative (NEGATIVE) Urine RBC 0-5 (0-5) /HPF Urine WBC 5-10 H (0-5) /HPF Ur Epithelial Cells Many H /LPF Urine Bacteria Many H (NONE TO FEW) /HPF Urine Opiates Screen Negative (NEGATIVE) Ur Oxycodone Screen Positive H (NEGATIVE) Urine Methadone Screen Negative (NEGATIVE) Ur Propoxyphene Screen Negative (NEGATIVE) Acetaminophen (10.0-30.0) ug/mL Ur Barbiturates Screen Negative (NEGATIVE) Ur Tricyclics Screen Negative (NEGATIVE) Ur Phencyclidine Scrn Negative (NEGATIVE) Ur Amphetamine Screen Negative (NEGATIVE) U Methamphetamines Scrn Negative (NEGATIVE) U Benzodiazepines Scrn Negative (NEGATIVE) U Cocaine Metab Screen Negative (NEGATIVE) U Marijuana (THC) Screen Negative (NEGATIVE) Ethyl Alcohol (NOT DETECTED) mg/dL SARS CoV-2 RNA Rapid SEDA (NEGATIVE) 05/14/21 05/14/21 Range/Units 04:05 04:36 WBC (5.00-10.00) 10^3/uL RBC (3.80-5.50) 10^6/uL Hgb (12.0-16.0) g/dL Hct (37.0-47.0) % MCV (82.0-92.0) fL MCH (27.0-31.0) pg MCHC (32.0-36.0) g/dL RDW (11.5-14.5) % Plt Count (150-400) 10^3/uL MPV (7.4-10.4) fL Immature Gran % (Auto) (0.0-5.0) % Neut % (Auto) (50.0-70.0) % Lymph % (Auto) (20.0-40.0) % [place] % (Auto) (2.0-8.0) % Eos % (Auto) (1.0-3.0) % Baso % (Auto) (0.0-1.0) % Neut # (Auto) (2.50-7.00) 10^3/uL Lymph # (Auto) (1.00-4.00) 10^3/uL [place] # (Auto) (0.10-0.80) 10^3/uL Eos # (Auto) (0.10-0.30) 10^3/uL Baso # (Auto) (0.00-0.10) 10^3/uL Immature Gran # (Auto) (0.00-0.50) 10^3/uL Sodium 138 (136-145) mmol/L Potassium 3.5 (3.5-5.1) mmol/L Chloride 99 (98-107) mmol/L Carbon Dioxide 22.6 (21.0-32.0) mmol/L Anion Gap 19.9 H (5-15) mmol/L BUN 13 (7-18) mg/dL Creatinine 0.75 (0.51-1.17) mg/dL Est Cr Clr Drug Dosing 96.00 mL/min Estimated GFR (MDRD) > 60 mL/min Glucose 74 (70-140) mg/dL Calcium 8.5 L (8.7-10.3) mg/dL Total Bilirubin 1.1 H (0.2-1.0) mg/dL AST 14 L (15-37) U/L ALT 17 (14-63) U/L Alkaline Phosphatase 45 L (46-116) U/L Total Protein 7.5 (6.4-8.2) g/dL Albumin 3.76 (3.40-5.00) g/dL Specimen Type Urine Color (YELLOW) Urine Appearance (CLEAR) Urine pH (5.0-9.0) Ur Specific [place] (1.005-1.030) Urine Protein (NEGATIVE) mg/dL Urine Glucose (UA) (NEGATIVE) mg/dL Urine Ketones (NEGATIVE) mg/dL Urine Occult Blood (NEGATIVE) Urine Nitrite (NEGATIVE) Urine Bilirubin (NEGATIVE) Urine Urobilinogen (0.2-1.0) E.U./dL Ur Leukocyte Esterase (NEGATIVE) Urine RBC (0-5) /HPF Urine WBC (0-5) /HPF Ur Epithelial Cells /LPF Urine Bacteria (NONE TO FEW) /HPF Urine Opiates Screen (NEGATIVE) Ur Oxycodone Screen (NEGATIVE) Urine Methadone Screen (NEGATIVE) Ur Propoxyphene Screen (NEGATIVE) Acetaminophen 0.0 L (10.0-30.0) ug/mL Ur Barbiturates Screen (NEGATIVE) Ur Tricyclics Screen (NEGATIVE) Ur Phencyclidine Scrn (NEGATIVE) Ur Amphetamine Screen (NEGATIVE) U Methamphetamines Scrn (NEGATIVE) U Benzodiazepines Scrn (NEGATIVE) U Cocaine Metab Screen (NEGATIVE) U Marijuana (THC) Screen (NEGATIVE) Ethyl Alcohol 0 (NOT DETECTED) mg/dL SARS CoV-2 RNA Rapid SEDA Negative (NEGATIVE) Meds: Medications Discontinued Medications Generic Name Dose Route Start Last Admin Trade Name Freq PRN Reason Stop Dose Admin Nitrofurantoin Macrocrystals 100 mg 05/14/21 05:44 Nitrofurantoin Monohydrate/Macrocrystalline 100 Mg Cap PO 05/14/21 05:45 ONETIME ONE - Re-Assessments/Exams Free Text/Narrative Re-Assessment/Exam: 05/14/21 05:50 Sherly is willing but somewhat hesitant as cause factors that everything else come into play1. Stated she would prefer to obtain care at her "regular facility" in [place] wherever that would be. Explained process we have to take as arrangements originated at time of dispatch. Understands and agrees. 05/14/21 06:01 Departure - Departure Time of Disposition: 05:58 Disposition: DC/Tfer to Acute Hospital 02 Condition: Good Clinical Impression: Depressive disorder, Self-harm, Suicidal intent, UTI (urinary tract infection) - Discharge Information *PRESCRIPTION DRUG MONITORING PROGRAM REVIEWED*: Not Applicable *COPY OF PRESCRIPTION DRUG MONITORING REPORT IN PATIENT WILFREDO: Not Applicable Forms: ED Department Discharge Additional Instructions: Will be transferred by ambulance directly to [facility] Sepsis Event Note (ED) - Focused Exam Vital Signs: Vital Signs Temp Pulse Resp BP Pulse Ox 05/14/21 04:53 98.9 F 95 14 128/79 99 05/14/21 03:35 99 F 108 H 16 129/93 H 97 ED Communication - ED Communication Date/Time Date: 05/14/21 Time Called: 05:20 - Discussed Case With (1) Discussed Case With (1): Mental Health Professional Person/s Notified (1): Yasmine Person/s Notified (2): Dr Valentin Delgado Date: 05/14/21 - Problem List & Annotations (1) Depressed SNOMED Code(s): 95258558 Code(s): F32.9 - MAJOR DEPRESSIVE DISORDER, SINGLE EPISODE, UNSPECIFIED Status: Acute Priority: High Qualifiers: Depression Type: major depressive disorder Major depression recurrence: recurrent Active/Remission status: currently active Major depression episode severity: severe Psychotic features: without psychotic features Qualified Code(s): F33.2 - Major depressive disorder, recurrent severe without psychotic features (2) Suicidal intent SNOMED Code(s): 593445456, 775786914 Code(s): R45.851 - SUICIDAL IDEATIONS Status: Acute Priority: High Onset Date: ~05/14/21 (3) UTI (urinary tract infection) SNOMED Code(s): 06640648 Code(s): N39.0 - URINARY TRACT INFECTION, SITE NOT SPECIFIED Status: Acute Priority: High Qualifiers: Urinary tract infection type: acute cystitis Hematuria presence: with hematuria Qualified Code(s): N30.01 - Acute cystitis with hematuria - Problem List Review Problem List Initiated/Reviewed/Updated: Yes - My Orders Last 24 Hours: My Active Orders 05/14/21 03:47 EKG 12 Lead [EK] Stat 05/14/21 04:00 CULTURE URINE [RM] Stat 05/14/21 04:20 Suicide Precautions [RC] .Per Facility Policy - Assessment/Plan Last 24 Hours: My Active Orders 05/14/21 03:47 EKG 12 Lead [EK] Stat 05/14/21 04:00 CULTURE URINE [RM] Stat 05/14/21 04:20 Suicide Precautions [RC] .Per Facility Policy Plan: Will be transferred by ambulance directly to [facility]
[2021-05-14 04:35] LABS: ANION GAP 19.9 mmol/L (5-15); CHLORIDE,CL 99 mmol/L (98-107); SODIUM,NA 138 mmol/L (136-145)
[2021-05-14 04:53] VITALS: BP 128/79; PULSE 95
[2021-05-14 05:06] LABS: BARBITURATE SCREEN,URINE NEGATIVE (NEGATIVE); BENZODIAZEPINES SCREEN,URINE NEGATIVE (NEGATIVE); TCA SCREEN,URINE NEGATIVE (NEGATIVE); THC SCREEN,URINE 50 NG/ML NEGATIVE (NEGATIVE)
[2021-05-14] MEDS ORDERED: Nitrofurantoin Monohydrate/Macrocrystalline 100 MG Cap PO ONE (05:44)
== END 2021-05-14 06:16 ==
LOC: KA.ED 03:35
DX: F32.9 Major depressive disorder, single episode, unspecified (principal); N39.0 Urinary tract infection, site not specified; S61.512A Laceration without foreign body of left wrist, initial encounter; Z88.1 Allergy status to other antibiotic agents; Z88.5 Allergy status to narcotic agent; Z88.8 Allergy status to other drugs, medicaments and biological substances; Z72.0 Tobacco use; Z20.822 Contact with and (suspected) exposure to COVID-19; X78.8XXA Intentional self-harm by other sharp object, initial encounter
CPT/HCPCS: 36415; 80053; 80143; 80305-QW; 80307; 81001; 85025; 87086; 87088; 87186; 93005; 99284; 99285-25; A9270-GY; U0002

== ENCOUNTER 2022-05-02 09:35 | Emergency (ER) | payer SELFPAY ==
[2022-05-02] MEDS ORDERED: Ondansetron 4 MG/2 ML SDV ONE ×2 (09:47→12:49)
[2022-05-02] MEDS ORDERED: Sodium Chloride 0.9% 1,000 ML ONE (09:48)
[2022-05-02] MEDS ORDERED: Ondansetron 4 MG/2 ML SDV IVPUSH ONE ×3 (09:55→12:51)
[2022-05-02] MEDS ORDERED: Sodium Chloride 0.9% 1,000 ML IV ONE (09:55)
[2022-05-02] MEDS ORDERED: Sodium Chloride 0.9% 10 ML Syringe FLUSH PRN (09:56)
[2022-05-02] MEDS ORDERED: Ketorolac 30 MG/ML SDV IVPUSH ONE (10:17)
[2022-05-02 10:20] LABS: ANION GAP 10.4 mmol/L (5-15)
[2022-05-02] MEDS ORDERED: Iopamidol 755 Mg/ML 75 ML Bottle IVPUSH ONE (12:40)
[2022-05-02] MEDS ORDERED: Sodium Chloride 0.9% 50 ML IV SCH (12:45)
[2022-05-02 12:55] VITALS: BP 124/80; PULSE 80
== END 2022-05-02 13:04 | disposition home or self-care (01) ==
LOC: KA.ED 09:35
DX: R10.12 Left upper quadrant pain (principal); R10.13 Epigastric pain; R11.2 Nausea with vomiting, unspecified; R31.29 Other microscopic hematuria; F17.210 Nicotine dependence, cigarettes, uncomplicated; Z88.1 Allergy status to other antibiotic agents; Z88.5 Allergy status to narcotic agent
CPT/HCPCS: 36415; 74177; 80053; 81001; 83690; 85025; 96361; 96374; 96375; 96376; 99284; 99284-25; J1885; J2405; J7030; Q9967

== ENCOUNTER 2022-09-10 14:56 | Emergency (ER) | payer SELFPAY ==
[2022-09-10] MEDS ORDERED: Sodium Chloride 0.9% 10 ML Syringe FLUSH PRN (15:00)
[2022-09-10] MEDS ORDERED: Sodium Chloride 0.9% 1,000 ML IV ONE (15:02)
[2022-09-10 15:35] LABS: ANION GAP 15.2 mmol/L (5-15); CHLORIDE,CL 101 mmol/L (98-107); SODIUM,NA 137 mmol/L (136-145)
[2022-09-10 15:39] LABS: ESTIMATED GFR 108 mL/min (>=60)
[2022-09-10 15:41] LABS: BARBITURATE SCREEN,URINE NEGATIVE (NEGATIVE); BENZODIAZEPINES SCREEN,URINE NEGATIVE (NEGATIVE); TCA SCREEN,URINE NEGATIVE (NEGATIVE); THC SCREEN,URINE 50 NG/ML NEGATIVE (NEGATIVE)
[2022-09-10 16:24] VITALS: BP 117/79; PULSE 90
== END 2022-09-10 16:20 | disposition home or self-care (01) ==
LOC: KA.ED 14:56
DX: G40.409 Other generalized epilepsy and epileptic syndromes, not intractable, without status epilepticus (principal); Z88.1 Allergy status to other antibiotic agents; Z88.6 Allergy status to analgesic agent; Z88.2 Allergy status to sulfonamides; Z90.710 Acquired absence of both cervix and uterus
CPT/HCPCS: 70450; 71045; 80053; 80305-QW; 80307; 81001; 83735; 84484; 84703; 85025; 93005; 99285; J7030

== ENCOUNTER 2024-08-02 16:00 | Emergency (ER) | payer SELFPAY ==
[2024-08-02] MEDS ORDERED: Water For Injection, Sterile 20 ML ONE (16:52)
[2024-08-02] MEDS: methylPREDNISolone Sodium Succinate 125 MG/2 ML SDV IM ONE (17:01)
[2024-08-02] MEDS: predniSONE 20 MG Tab PO ONE (17:01)
[2024-08-02 17:19] VITALS: BP 125/100; PULSE 79
[2024-08-03] MEDS ORDERED: predniSONE 20 MG Tab PO SCH (08:00)
== END 2024-08-02 17:15 | disposition home or self-care (01) ==
LOC: KA.ED 16:00
DX: G36.0 Neuromyelitis optica [Devic] (principal); G35 Multiple sclerosis; Z86.16 Personal history of COVID-19; Z90.49 Acquired absence of other specified parts of digestive tract; Z90.710 Acquired absence of both cervix and uterus; Z88.2 Allergy status to sulfonamides; Z88.5 Allergy status to narcotic agent; Z88.1 Allergy status to other antibiotic agents
CPT/HCPCS: 70450; 96372; 99284; J2919; J7512

== ENCOUNTER 2025-01-13 16:30 | Emergency (ER) | payer SELFPAY ==
[2025-01-13] MEDS: Amoxicillin/Clavulanate K 500-125 MG Tab PO ONE (18:22)
[2025-01-13 18:32] VITALS: BP 128/90; PULSE 99
== END 2025-01-13 18:28 | disposition home or self-care (01) ==
LOC: KA.ED 16:30
DX: J01.00 Acute maxillary sinusitis, unspecified (principal); K02.9 Dental caries, unspecified; F17.200 Nicotine dependence, unspecified, uncomplicated; Z86.16 Personal history of COVID-19; Z90.49 Acquired absence of other specified parts of digestive tract; Z79.899 Other long term (current) drug therapy; Z88.5 Allergy status to narcotic agent; Z88.2 Allergy status to sulfonamides; Z88.8 Allergy status to other drugs, medicaments and biological substances; Z88.1 Allergy status to other antibiotic agents
CPT/HCPCS: 70220; 99283; A9270

== ENCOUNTER 2025-07-21 09:15 | Emergency (ER) | payer BC ==
[2025-07-21] MEDS: Ondansetron 4 MG/2 ML SDV IVPUSH ONE (09:36)
[2025-07-21 09:37] LABS: BASOPHILS ABSOLUTE AUTO 0.02 10^3/uL (0.00-0.10); BASOPHILS PERCENT AUTO 0.2 % (0.0-1.0); EOSINOPHILS ABSOLUTE AUTO 0.12 10^3/uL (0.10-0.30); EOSINOPHILS PERCENT AUTO 1.2 % (1.0-3.0); IMMATURE GRAN ABSOLUTE AUTO 0.01 10^3/uL (0.00-0.04); IMMATURE GRAN PERCENT AUTO 0.1 % (0.0-0.4); LYMPHOCYTES ABSOLUTE AUTO 2.03 10^3/uL (1.00-4.00); LYMPHOCYTES PERCENT AUTO 19.8 % (20.0-40.0); MEAN PLATELET VOLUME 9.1 fL (7.4-10.4); MONOCYTES ABSOLUTE AUTO 0.65 10^3/uL (0.10-0.80); MONOCYTES PERCENT AUTO 6.3 % (2.0-8.0); NEUTROPHILS ABSOLUTE AUTO 7.43 10^3/uL (2.50-7.00); NEUTROPHILS PERCENT AUTO 72.4 % (50.0-70.0); PLATELET COUNT,PLT 333 10^3/uL (150-400); RED BLOOD CELL COUNT 4.45 10^6/uL (3.80-5.50); RED CELL DISTRIBUTION WIDTH 12.6 % (11.5-14.5); WHITE BLOOD CELL COUNT,WBC 10.26 10^3/uL (5.00-10.00)
[2025-07-21] MEDS: Sodium Chloride 0.9% 10 ML Syringe FLUSH PRN (09:38)
[2025-07-21 09:59] LABS: ALANINE AMINOTRANSFERASE,ALT 52.0 U/L (14-63); ASPARTATE AMNIOTRANSFERASE,AST 13.0 U/L (15-37); BILIRUBIN TOTAL 0.6 mg/dL (0.2-1.0); BLOOD UREA NITROGEN,BUN 14.0 mg/dL (7-18); CARBON DIOXIDE,CO2 23.9 mmol/L (21.0-32.0); CHLORIDE,CL 102.0 mmol/L (98-107); CREATININE 0.77 mg/dL (0.51-1.17); EST CRCL DRUG DOSING (CG) 90.97 mL/min; GLUCOSE RANDOM 93.0 mg/dL (70-140); POTASSIUM,K 4.0 mmol/L (3.5-5.1); PROTEIN TOTAL,TP 7.4 g/dL (6.4-8.2); SODIUM,NA 139.0 mmol/L (136-145)
[2025-07-21 10:00] LABS: ESTIMATED GFR 102.0 mL/min (>=60)
[2025-07-21 14:30] VITALS: BP 123/83; PULSE 81
== END 2025-07-21 11:40 | disposition home or self-care (01) ==
LOC: KA.ED 09:20
DX: S06.0X0A Concussion without loss of consciousness, initial encounter (principal); G44.319 Acute post-traumatic headache, not intractable; G35.D Multiple sclerosis, unspecified; Z88.1 Allergy status to other antibiotic agents; Z88.2 Allergy status to sulfonamides; Z88.8 Allergy status to other drugs, medicaments and biological substances; Z79.899 Other long term (current) drug therapy; Z86.16 Personal history of COVID-19; Z90.49 Acquired absence of other specified parts of digestive tract; Z90.710 Acquired absence of both cervix and uterus; W19.XXXA Unspecified fall, initial encounter
CPT/HCPCS: 36415; 70450; 80053; 85025; 96361; 96374; 99284; 99284-25; J2405; J7030